=== PATIENT | male | born 1940 | race Caucasian/White ===

== ENCOUNTER 2019-08-26 15:55 | Emergency (ER) | payer MEDICARE, OTHER, SELFPAY ==
[2019-08-26 15:57] VITALS: BP 150/86; PULSE 62; RESP 17; TEMP 37; O2SAT 96; BMI 28.5
--- NOTE | 2019-08-26 16:27 | RAD_ITS ---
STUDY: X-RAY CHEST REASON FOR EXAM: Male, 79 years old. Left-sided pain TECHNIQUE: Frontal view of the chest COMPARISON: 06/12/2013 FINDINGS: The lungs are clear. There are no pleural effusions. There is no pneumothorax. The heart is normal in size. The visualized osseous structures are within normal limits. RAD/Chest 1 View (Portable) IMPRESSION: No acute thoracic pathology. Electronically Signed: Juvenal Mendez, at 17:22 EDT Tel , Service support ,
--- NOTE | 2019-08-26 16:27 | EKG12_ITS ---
Test Reason : Blood Pressure : / mmHG Vent. Rate : 058 BPM Atrial Rate : 058 BPM P-R Int : 186 ms QRS Dur : 102 ms QT Int : 440 ms P-R-T Axes : 039 -03 098 degrees QTc Int : 431 ms Sinus bradycardia with Premature atrial complexes Nonspecific T wave abnormality Abnormal ECG Confirmed by DAWNA STANTON, RIKKI ([id number]), make up editor ELIZA JERONIMO ([id number]) on 08/29/2019 3:23:11 PM Referred By: CRYSTAL Confirmed By:RIKKI TONEY MD
[2019-08-26 16:56] VITALS: O2SAT 96
[2019-08-26] MEDS: Aspirin 81 MG TAB.CHEW 324 MG PO (16:56)
[2019-08-26 17:30] LABS: Absolute Lymphocyte Count 2.23 X10^3/uL (0.83-4.51); Absolute Neutrophil Count 5.3 X10^3/uL (2.0-7.7); Basophil# 0.05 X10^3/uL; Basophil% 0.6 % (0-1); Eosinophils% 1.2 % (0-5); Hematocrit 43.8 % (40-54); Hemoglobin 14.9 g/dL (13.0-16.5); Lymphocyte # 2.23 X10^3/ul (4.0); Lymphocyte % 26.6 % (19-41); Mean Corpuscular Hgb 33.6 pg (27.0-32.0); Mean Corpuscular Volume 98.9 fL (80-94); Mean Platelet Vol. 9.6 fl (6.2-12.0); Monocyte# 0.71 X10^3/uL; Monocyte% 8.5 % (0-10); NRBC Flagged by Analyzer 0 % (0-5); Neutrophil # 5.26 X10^3/uL (2.7-7.7); Neutrophil % 62.9 % (47-70); Platelet Count 148 K/mm3 (150-450); RBC Distribution Width CV 11.6 % (11.6-14.6); Red Blood Count 4.43 M/mm3 (4.6-6.2); White Blood Count 8.4 K/mm3 (4.4-11.0)
[2019-08-26 17:48] LABS: Anion Gap 6 (5-15); BUN 20 mg/dL (7-18); BUN/Creat Ratio 17.7 RATIO (10-20); Chloride 104 mmol/L (98-107); Creatinine, Serum 1.13 mg/dL (0.70-1.30); EST Glomerular Filtration Rate 67 mL/min (>60); Est Glom Filt Rate - Afr Amer 81 mL/min (>60); Estimated Creatinine Clearance 59.13 ml/min; Glucose 108 mg/dL (74-106); Potassium 4.2 mmol/L (3.5-5.1); Sodium Level 141 mmol/L (136-145)
--- NOTE | 2019-08-26 17:52 | ED.DCSUM_ITS ---
- ER Visit Summary Date of Service: 08/26/19 Chief Complaint: Bilateral axillary pain History of Present Illness: The patient is a [address] Ortega. He reports that while he has been home for the COVID-19 he has been spending more time on the computer. States is been falling asleep at the computer sometimes for hours and wakes up finding that his head is slumped forward and that his arms are still on the armrest of the chairs. Reports that he is had pain in both legs left for approximately 2 weeks. Is a dull pain is 5-10 at worst and pain 1 out of 10 currently. States that it is unchanged by movement or exertion. Is taken Motrin with relief. He denies any paresthesias or weakness. He denies any other chest pain. He is right-hand dominant. He is never had anything like this before. Physical Examination: Vitals: Stable. Afebrile. General: Well-nourished and well-developed. Head: Normocephalic atraumatic. Neck: Supple, no lymphadenopathy. No JVD. Nontender. Cardiovascular: Regular rate and rhythm. No murmurs. Respiratory: No respiratory distress. Clear to auscultation bilaterally. Mild tenderness palpation to the lateral pectoralis major muscle bilaterally and in the axilla bilaterally. There are no lymph nodes. No abscess. He is neuro vas intact distally. Abdominal: Soft, nontender, nondistended, normal bowel sounds. No guarding, rebound, or peritoneal signs. Back: Nontender. Extremities: Nontender, no edema. Full range of motion without any pain. No pain over his shoulders. Skin: Normal color, no rash. Neurologic: Alert and oriented ?3. Cranial nerves II through XII are intact. Normal strength and sensation. Psych: Normal affect. Test Results: EKG is sinus bradycardia at 58 with T wave inversions in leads I and aVL. There is no old EKG for comparison troponin is negative. Chem-7 shows a BUN of 20 and glucose 108. CBC shows platelets 148. Clinical Impression(s) from Imaging Studies Chest X-Ray 08/26/19 16:27 IMPRESSION: No acute thoracic pathology. Electronically Signed: Juvenal Mendez, at 17:22 EDT Tel , Service support , Emergency Department Course and Treatment: Patient refused pain medications. He is resting comfortably. Treatment Plan: I suspect that the patient's pain is really musculoskeletal in etiology. I do not think that he needs to be admitted to the hospital. He will be discharged instructions to follow-up his primary care physician in 3 to 5 days for another exam. Return to the emergency department for any worsening symptoms. Disposition: To home in improved and stable condition. Impression: 1. Atypical chest pain. 2. History of hypertension. 3. History of type 2 diabetes mellitus. 4. History of hypercholesterolemia. This note was generated with [employer] dictation software. It may contain incorrect words, spelling, and punctuation that were not noted in review of the chart prior to signing ED Disposition - Plan for ED Patient: Disposition: Home or Assisted Living Instructions: ED Shoulder Pain Uncertain Cause Referrals: Arline Mckeon MD [Primary Care Provider] - 1 Week if not improving
[2019-08-26 18:30] VITALS: BP 121/69; PULSE 52; RESP 16; O2SAT 95
--- NOTE | 2019-08-26 18:30 | ED.RN ---
REVIEWED D/C INSTRUCTIONS, FOLLOW UP CARE, AND S/S THAT WOULD WARRANT A RETURN TO THE ED WITH PT. PT VERBALIZED AN UNDERSTANDING AND DENIES FURTHER QUESTIONS FOR THIS RN. PT SKIN P/W/D, RESP EVEN AND UNLABORED, PT A&O X 3, NO DISTRESS NOTED. PT AMBULATED OUT OF ED, GAIT STEADY.
== END 2019-08-26 18:31 | disposition home or self-care (01) ==
LOC: ED 17:06
PROVIDERS: Emergency Provider Emergency Medicine; PCP Internal Medicine
DX: R07.89 Other chest pain (principal); I10 Essential (primary) hypertension; E11.9 Type 2 diabetes mellitus without complications; E78.00 Pure hypercholesterolemia, unspecified; R00.1 Bradycardia, unspecified; R19.7 Diarrhea, unspecified
CPT/HCPCS: 71045; 80048; 84484; 85025; 93005; 99284

== ENCOUNTER 2020-10-06 16:23 | Observation (INO) | payer MEDICARE, OTHER, SELFPAY ==
[2020-10-06] VITALS (8 sets, daily range): BP systolic 144–169; BP diastolic 70–94; PULSE 51–70; RESP 15–18; TEMP 35.7–36.8; O2SAT 96–100; BMI 27.8; BMI 26.6
--- NOTE | 2020-10-06 17:01 | EKG12_ITS ---
Test Reason : CHEST PAIN Blood Pressure : / mmHG Vent. Rate : 064 BPM Atrial Rate : 064 BPM P-R Int : 176 ms QRS Dur : 104 ms QT Int : 398 ms P-R-T Axes : 034 007 088 degrees QTc Int : 410 ms Normal sinus rhythm Normal ECG Confirmed by KENYA STODDARD MD ([id number]), editor producer NEIL RAMSEY ([id number]) on 10/08/2020 9:08:45 AM Referred By: ALFREDO Confirmed By:KENYA STODDARD MD
--- NOTE | 2020-10-06 17:01 | RAD_ITS ---
STUDY: X-RAY CHEST REASON FOR EXAM: Male, 80 years old. Chest pain TECHNIQUE: Frontal view COMPARISON: 08/26/2019. FINDINGS: The lungs are clear and expanded. There is no demonstrated pleural abnormality. Normal size heart. Normal mediastinum and tori. Normal visualized pulmonary arteries. Normal visualized aortic arch and descending thoracic aorta. Mild degenerative changes of the thoracic spine. Normal visualized ribs, clavicles, and shoulders. There is no demonstrated abnormality of the visualized soft tissue structures of the upper abdomen. RAD/Chest 1 View (Portable) IMPRESSION: Normal x-ray examination of the chest. Electronically Signed: Lauro Beasley DO at 17:41 EDT Tel [phone], Service support ,
[2020-10-06] MEDS: Aspirin 81 MG TAB.CHEW 324 MG PO (17:10)
--- NOTE | 2020-10-06 17:10 | EDS_ITS ---
HPI History of Present Illness Chief Complaint: Chest Pain Informant: patient Onset/Context/Timing Onset: Today Current Severity: Mild Maximum Severity: Severe Narrative Narrative: Patient presents secondary to bilateral arm and chest pain. Patient states that he was doing some light activity moving dog biscuits around 330 this afternoon. He developed severe aching in his bilateral arms that progressed to the left posterior neck and to the pectoral muscles on his chest. He did take some Motrin. He states he had a hard time sitting still and felt he does need to pace. He states pain was a 10 out of 10 at onset but is currently [address] [facility] Medical History (Updated 10/06/20 @ 18:[address] Marilee Gaines MD) Benign hypertension Diabetes mellitus type 2, uncontrolled, without complications HLD (hyperlipidemia) Home Medications Atorvastatin Calcium 80 mg PO DAILY 06/12/13 [History Last Taken Unknown] cholecalciferol (vitamin D3) [Vitamin D3] 1,000 unit PO DAILY 06/12/13 [History Last Taken Unknown] coenzyme Q10 [Co Q-10] 100 mg PO DAILY 06/12/13 [History Last Taken Unknown] latanoprost 1 drp EACH EYE QHS 06/12/13 [History Last Taken Unknown] metformin 500 mg PO BIDCM 06/12/13 [History Last Taken Unknown] multivitamin with folic acid [Thera] 1 tab PO DAILY 06/12/13 [History Last Taken Unknown] sulfamethoxazole-trimethoprim 1 tab PO BID #20 tablet 12/11/15 [Rx Last Taken Unknown] finasteride 5 mg PO DAILY 10/06/20 [History Last Taken Unknown] glimepiride 0.5 mg PO DAILY 10/06/20 [History Last Taken Unknown] Allergy/AdvReac Type Severity Reaction Status Date / Time Horse/Equine Containing Allergy Other Verified 10/06/20 16:37 Products iodine Allergy Rash Verified 10/06/20 16:37 pneumococcal vaccine Allergy Rash Verified 10/06/20 16:37 [Pneumococcal Vaccine] shellfish derived Allergy Rash Verified 10/06/20 16:37 esomeprazole magnesium AdvReac Pain in Verified 10/06/20 16:37 [From Nexium] joints fexofenadine HCl AdvReac Pain in Verified 10/06/20 16:37 [From Karen] joints glipizide AdvReac Pain in Verified 10/06/20 16:37 joints gluten AdvReac Nausea/Vom/ Verified 10/06/20 16:37 Diarrhea lansoprazole [From Prevacid] AdvReac Pain in Verified 10/06/20 16:37 joints simvastatin [From Zocor] AdvReac Pain in Verified 10/06/20 16:37 joints POLLEN AdvReac Other Uncoded 10/06/20 16:37 Social History Smoking Status: Never smoker ROS ROS ED Constitutional Constitutional ED: Denies chills or fever(s) Eyes Eyes: Denies change in vision ENT ENT ED: Denies sore throat Cardiovascular Cardiovascular: Reports chest pain Respiratory/Chest Respiratory/Chest: Denies cough or dyspnea Gastrointestinal Gastrointestinal: Denies abdominal pain, diarrhea, nausea or vomiting Genitourinary Genitourinary ED: Denies dysuria Musculoskeletal Musculoskeletal: Reports myalgias and neck pain; Denies back pain Integumentary Denies rash Neurologic Neurologic: Denies headache(s) or weakness Psychiatric Psychiatric: Denies anxiety or depression Endocrine Endocrinology: Denies polydipsia or polyuria Allergic/Immunologic Allergic/Immunologic ED: Denies urticaria EXAM Physical Exam Const Vital Signs: 10/06/20 16:23 10/06/20 16:42 10/06/20 17:02 Temperature 96.2 F L Temperature Source Temporal Pulse Rate 70 Respiratory Rate 16 Respiratory Effort Normal Non-Labored Blood Pressure 169/88 H Blood Pressure Mean 115 Pulse Ox 96 100 Oxygen Delivery Method Room Air Room Air 10/06/20 18:23 Temperature Temperature Source Pulse Rate 61 Respiratory Rate 15 Respiratory Effort Blood Pressure 144/70 H Blood Pressure Mean 94 Pulse Ox 99 Oxygen Delivery Method Room Air Positive well nourished and well developed General Appearance ED: well developed HEENT Reports normocephalic and head/scalp atraumatic Eyes PERRL and EOMs intact bilaterally Neck supple Chest Wall inspection of chest normal and palpation of chest normal Resp normal respiratory effort and clear to auscultation bilaterally Cardio regular rate and regular rhythm GI normal to inspection, nondistended, normoactive bowel sounds Palpation: soft Extremity normal to inspection Neuro oriented x3 and no sensory deficits noted Sensorium / Orientation: alert Motor Exam: strength 5/5 throughout Psych mental status grossly normal Skin no rashes or lesions noted MDM MDM MDM Narrative Medical decision making narrative: Patient was given aspirin on arrival. EKG, labs, chest x-ray are obtained. Lab Data Attestation: I reviewed the patient's lab results. Labs: Laboratory Results - last 24 hr 10/06/20 10/06/20 10/06/20 15:45 15:45 17:12 WBC 8.6 RBC 4.69 Hgb 15.6 Hct 45.3 MCV 96.6 H MCH 33.3 H MCHC 34.4 RDW Std Deviation 41.0 RDW Coeff of Deepali 11.6 Plt Count 170 MPV 9.4 Immature Gran % (Auto) 0.200 Neut % (Auto) 55.3 Lymph % (Auto) 34.5 [place] % (Auto) 8.4 Eos % (Auto) 1.0 Baso % (Auto) 0.6 Absolute Neuts (auto) 4.8 Absolute Lymphs (auto) 2.97 Nucleated RBC % 0 D-Dimer Quant (PE/DVT) 0.56 H* Sodium 137 Potassium 4.4 Chloride 102 Carbon Dioxide 27.0 Anion Gap 8 BUN 20 H Creatinine 1.22 Estim Creat Clear Calc 53.89 Est GFR (MDRD) Af Amer 74 Est GFR (MDRD) Non-Af 61 BUN/Creatinine Ratio 16.4 Glucose 149 H Calcium 9.4 Troponin I High Sens 13.5 10/06/20 18:09 WBC RBC Hgb Hct MCV MCH MCHC RDW Std Deviation RDW Coeff of Deepali Plt Count MPV Immature Gran % (Auto) Neut % (Auto) Lymph % (Auto) [place] % (Auto) Eos % (Auto) Baso % (Auto) Absolute Neuts (auto) Absolute Lymphs (auto) Nucleated RBC % D-Dimer Quant (PE/DVT) Sodium Potassium Chloride Carbon Dioxide Anion Gap BUN Creatinine Estim Creat Clear Calc Est GFR (MDRD) Af Amer Est GFR (MDRD) Non-Af BUN/Creatinine Ratio Glucose Calcium Troponin I High Sens 29.3 Radiography Chest X-Ray - ED: 1 View, Read by ED Physician and Chronic Changes Diagnostic Testing: Radiology Impression Chest X-Ray 10/06/20 17:01 IMPRESSION: Normal x-ray examination of the chest. Electronically Signed: Lauro Beasley DO at 17:41 EDT Tel [phone], Service support , EKG Initial EKG: Attestation: I personally reviewed and interpreted this EKG as follows: Interpretation: Sinus Rhythm (Sinus at 64 with no acute ischemia. Unchang ed compared to prior study of 08/26/2019) Follow-up EKG: Attestation: I personally reviewed and interpreted this EKG as follows: Interpretation: Sinus Bradycardia (Sinus bradycardia [address] change.) Treatment and Re-Evaluation Comments:: Patient's chest x-ray is unremarkable with chronic changes only. Radiologist interpretation is reviewed. EKG reveals no sign of acute ischemia. Initial troponin returns at 13.5. Delta troponin has increased to 29. D-dimer is normal when age-adjusted. No EKG changes were noted on repeat. At this time I have recommended observation for cycling of enzymes. I will speak with the hospitalist. Discharge Plan Dx/Rx/DC Orders Clinical Impression: Chest pain Disposition Disposition: Acute Care Hospital [facility]
[2020-10-06 17:32] LABS: Absolute Lymphocyte Count 2.97 X10^3/uL (0.83-4.51); Absolute Neutrophil Count 4.8 X10^3/uL (2.0-7.7); Basophil# 0.05 X10^3/uL; Basophil% 0.6 % (0-1); Eosinophil# 0.09 X10^3/uL; Hematocrit 45.3 % (40-54); Hemoglobin 15.6 g/dL (13.0-16.5); Lymphocyte # 2.97 X10^3/ul (0.83-4.51); Lymphocyte % 34.5 % (19-41); Mean Corp Hgb Conc 34.4 g/dL (32-36); Mean Corpuscular Hgb 33.3 pg (27.0-32.0); Mean Corpuscular Volume 96.6 fL (80-94); Mean Platelet Vol. 9.4 fl (6.2-12.0); Monocyte# 0.72 X10^3/uL; Monocyte% 8.4 % (0-10); NRBC Flagged by Analyzer 0 % (0-5); Neutrophil # 4.76 X10^3/uL (2.7-7.7); Neutrophil % 55.3 % (47-70); Platelet Count 170 K/mm3 (150-450); RBC Distribution Width CV 11.6 % (11.6-14.6); Red Blood Count 4.69 M/mm3 (4.6-6.2); White Blood Count 8.6 K/mm3 (4.4-11.0)
[2020-10-06 17:34] LABS: Anion Gap 8 (5-15); BUN 20 mg/dL (7-18); BUN/Creat Ratio 16.4 RATIO (10-20); Calcium,Total 9.4 mg/dL (8.5-10.1); Chloride 102 mmol/L (98-107); Creatinine, Serum 1.22 mg/dL (0.70-1.30); EST Glomerular Filtration Rate 61 mL/min (>60); Est Glom Filt Rate - Afr Amer 74 mL/min (>60); Estimated Creatinine Clearance 53.89 ml/min; Glucose 149 mg/dL (74-106); Potassium 4.4 mmol/L (3.5-5.1); Sodium Level 137 mmol/L (136-145); Troponin-I HS 13.5 pg/mL (3.0-78.5)
[2020-10-06 17:38] LABS: D-Dimer Quantitative (DVT/PE) 0.56 FEU/ug/m (0.27-0.49)
--- NOTE | 2020-10-06 18:03 | EKG12_ITS ---
Test Reason : REPEAT Blood Pressure : / mmHG Vent. Rate : 052 BPM Atrial Rate : 052 BPM P-R Int : 178 ms QRS Dur : 096 ms QT Int : 458 ms P-R-T Axes : 053 022 083 degrees QTc Int : 425 ms Sinus bradycardia Otherwise normal ECG Confirmed by ARLYN STANTON, KENYA ([id number]), offline editor NEIL RAMSEY ([id number]) on 10/08/2020 9:08:57 AM Referred By: ALFREDO Confirmed By:KENYA STODDARD MD
[2020-10-06 18:34] LABS: Troponin-I HS 29.3 pg/mL (3.0-78.5)
--- NOTE | 2020-10-06 19:04 | PCM.HP.STD ---
Documented by User: MONI MeehanC 10/06/20 19:15 HPI - General HPI Narrative LESLIE CROWLEY, is a 80 M who presents with complaints of chest pain. Patient states that he was at home moving a container of dog biscuits when he got crushing chest pain along with bilateral arm pain. Patient states that he took ibuprofen at home initially because he thought that he lifted wrong but the pain continued and he began to worry that it might be his heart. Patient states that initially pain was 10 out of 10 but is currently 2 out of 10. Patient denies cough, shortness of breath, nausea, vomiting. [facility] Medical History (Updated 10/06/20 @ 19:10 by GENO Meehan) Benign hypertension BPH (benign prostatic hyperplasia) Diabetes mellitus type 2, uncontrolled, without complications Glaucoma HLD (hyperlipidemia) Home Medications Atorvastatin Calcium 80 mg PO DAILY 06/12/13 [History Last Taken Unknown] cholecalciferol (vitamin D3) [Vitamin D3] 1,000 unit PO DAILY 06/12/13 [History Last Taken Unknown] coenzyme Q10 [Co Q-10] 100 mg PO DAILY 06/12/13 [History Last Taken Unknown] latanoprost 1 drp EACH EYE QHS 06/12/13 [History Last Taken Unknown] metformin 500 mg PO BIDCM 06/12/13 [History Last Taken Unknown] multivitamin with folic acid [Thera] 1 tab PO DAILY 06/12/13 [History Last Taken Unknown] sulfamethoxazole-trimethoprim 1 tab PO BID #20 tablet 12/11/15 [Rx Last Taken Unknown] finasteride 5 mg PO DAILY 10/06/20 [History Last Taken Unknown] glimepiride 0.5 mg PO DAILY 10/06/20 [History Last Taken Unknown] Allergy/AdvReac Type Severity Reaction Status Date / Time Horse/Equine Containing Allergy Other Verified 10/06/20 16:37 Products iodine Allergy Rash Verified 10/06/20 16:37 pneumococcal vaccine Allergy Rash Verified 10/06/20 16:37 [Pneumococcal Vaccine] shellfish derived Allergy Rash Verified 10/06/20 16:37 esomeprazole magnesium AdvReac Pain in Verified 10/06/20 16:37 [From Nexium] joints fexofenadine HCl AdvReac Pain in Verified 10/06/20 16:37 [From Karen] joints glipizide AdvReac Pain in Verified 10/06/20 16:37 joints gluten AdvReac Nausea/Vom/ Verified 10/06/20 16:37 Diarrhea lansoprazole [From Prevacid] AdvReac Pain in Verified 10/06/20 16:37 joints simvastatin [From Zocor] AdvReac Pain in Verified 10/06/20 16:37 joints POLLEN AdvReac Other Uncoded 10/06/20 16:37 Social History (Updated 10/06/20 @ 19:08 by Trisha Lema NP-C) Smoking Status: Never smoker alcohol intake: current alcohol intake frequency: holidays/special occasions only substance use type: does not use do you feel safe at home: Yes ROS Constitutional Constitutional: Denies anorexia, chills, fatigue, malaise or weakness Cardiovascular Cardiovascular: Reports chest pain and radiating jaw, neck or arm pain; Denies edema or palpitations Respiratory/Chest Respiratory/Chest: Denies cough, shortness of breath at rest or shortness of breath with exertion Gastrointestinal Gastrointestinal: Denies abdominal pain, constipation, diarrhea, nausea or vomiting Genitourinary Genitourinary: Denies dysuria Musculoskeletal Musculoskeletal: Reports back pain; Denies extremity pain, joint pain, joint stiffness or joint swelling Integumentary Integumentary: Denies dry skin Neurologic Neurologic: Denies abnormal gait, abnormal speech, confusion or dizziness Psychiatric Psychiatric: Denies anxiety or depression Endocrine Endocrinology: Denies change in body appearance Hematologic/Lymphatic Hematologic/Lymphatic: Denies easy bleeding or easy bruising Vital Signs Vital Signs Vital Signs: 10/06/20 16:23 10/06/20 16:42 10/06/20 17:02 Temperature 96.2 F L Temperature Source Temporal Pulse Rate 70 Respiratory Rate 16 Respiratory Effort Normal Non-Labored Blood Pressure 169/88 H Blood Pressure Mean 115 Pulse Ox 96 100 Oxygen Delivery Method Room Air Room Air 10/06/20 18:23 10/06/20 18:58 Temperature 98.3 F Temperature Source Temporal Pulse Rate 61 61 Respiratory Rate 15 18 Respiratory Effort Blood Pressure 144/70 H 150/94 H Blood Pressure Mean 94 112 Pulse Ox 99 99 Oxygen Delivery Method Room Air Room Air Weight Weight: 205 lb Body Mass Index (BMI) 27.8 Physical Exam Const alert and oriented x3 General Appearance: cooperative HEENT normocephalic and head/scalp atraumatic Eyes conjunctivae normal and no scleral icterus Neck supple and no JVD General: trachea midline Resp normal respiratory effort, normal air movement and clear to auscultation bilaterally Cardio regular rhythm, S1 normal heart sound and S2 normal heart sound Rate: bradycardia GI normal to inspection, nondistended, normoactive bowel sounds, soft to palpation and non-tender Extremity normal capillary refill and no clubbing, cyanosis or edema General Extremity: no tenderness to palpation of joints or extremities Skin General Skin Exam: no breakdown and turgor normal Lesions: no lesions Rashes: no rashes Neuro no focal motor deficits and no sensory deficits noted Speech: speech normal Psych thought process normal, cooperative and affect normal Appearance: appropriate Results Lab / Micro Data Result Diagrams: 10/06/20 15:45 10/06/20 15:45 Labs: Laboratory Results - last 24 hr 10/06/20 10/06/20 10/06/20 15:45 15:45 17:12 WBC 8.6 RBC 4.69 Hgb 15.6 Hct 45.3 MCV 96.6 H MCH 33.3 H MCHC 34.4 RDW Std Deviation 41.0 RDW Coeff of Deepali 11.6 Plt Count 170 MPV 9.4 Immature Gran % (Auto) 0.200 Neut % (Auto) 55.3 Lymph % (Auto) 34.5 [place] % (Auto) 8.4 Eos % (Auto) 1.0 Baso % (Auto) 0.6 Absolute Neuts (auto) 4.8 Absolute Lymphs (auto) 2.97 Nucleated RBC % 0 D-Dimer Quant (PE/DVT) 0.56 H* Sodium 137 Potassium 4.4 Chloride 102 Carbon Dioxide 27.0 Anion Gap 8 BUN 20 H Creatinine 1.22 Estim Creat Clear Calc 53.89 Est GFR (MDRD) Af Amer 74 Est GFR (MDRD) Non-Af 61 BUN/Creatinine Ratio 16.4 Glucose 149 H Calcium 9.4 Troponin I High Sens 13.5 10/06/20 18:09 WBC RBC Hgb Hct MCV MCH MCHC RDW Std Deviation RDW Coeff of Deepali Plt Count MPV Immature Gran % (Auto) Neut % (Auto) Lymph % (Auto) [place] % (Auto) Eos % (Auto) Baso % (Auto) Absolute Neuts (auto) Absolute Lymphs (auto) Nucleated RBC % D-Dimer Quant (PE/DVT) Sodium Potassium Chloride Carbon Dioxide Anion Gap BUN Creatinine Estim Creat Clear Calc Est GFR (MDRD) Af Amer Est GFR (MDRD) Non-Af BUN/Creatinine Ratio Glucose Calcium Troponin I High Sens 29.3 Radiology Impression Chest X-Ray 10/06/20 17:01 IMPRESSION: Normal x-ray examination of the chest. Electronically Signed: Laurougo Beasley DO at 17:41 EDT Tel [phone], Service support , Assessment & Plan Assessment/Plan (1) Chest pain: QUALIFIERS: Chest pain type: unspecified Qualified Code(s): R07.9 - Chest pain, unspecified PLAN: 1. Chest pain -Admit to PCU for observation and continuous cardiac monitoring -Stress echo ordered for a.m. -Trend cardiac enzymes -N.p.o. at midnight for pending stress echo -EKG in a.m. -CBC, CMP, lipid panel in a.m. -O2 per protocol -Vital signs per protocol, trend BP and heart rate -Will initiate aspirin -Graduated pain management ordered including Tylenol, oxycodone, and morphine. Sublingual nitro also ordered. 2. Hypertension -Patient reports a history however not currently taking any medications -We will initiate lisinopril 5 mg p.o. along with as needed hydralazine for better blood pressure control 3. Diabetes mellitus type 2 -Hold glimepiride and Metformin -AC at bedtime blood sugars with sliding scale insulin ordered 4. BPH -Continue finasteride, track intake and output DVT prophylaxis-SCDs and Lovenox This patient was seen by Trisha Lema NP-C under the supervision of Dr. Brower. Documented by User: Dr. Nicole Brower MD 10/06/20 19:18 HPI - General General Date of Admission: 10/06/20 Date of Service: 10/06/20 Chief Complaint: Chest pain PFSH Medical History (Updated 10/06/20 @ 19:10 by MONI MeehanC) Benign hypertension BPH (benign prostatic hyperplasia) Diabetes mellitus type 2, uncontrolled, without complications Glaucoma HLD (hyperlipidemia) Home Medications Atorvastatin Calcium 80 mg PO DAILY 06/12/13 [History Last Taken Unknown] cholecalciferol (vitamin D3) [Vitamin D3] 1,000 unit PO DAILY 06/12/13 [History Last Taken Unknown] coenzyme Q10 [Co Q-10] 100 mg PO DAILY 06/12/13 [History Last Taken Unknown] latanoprost 1 drp EACH EYE QHS 06/12/13 [History Last Taken Unknown] metformin 500 mg PO BIDCM 06/12/13 [History Last Taken Unknown] multivitamin with folic acid [Thera] 1 tab PO DAILY 06/12/13 [History Last Taken Unknown] sulfamethoxazole-trimethoprim 1 tab PO BID #20 tablet 12/11/15 [Rx Last Taken Unknown] finasteride 5 mg PO DAILY 10/06/20 [History Last Taken Unknown] glimepiride 0.5 mg PO DAILY 10/06/20 [History Last Taken Unknown] Allergy/AdvReac Type Severity Reaction Status Date / Time Horse/Equine Containing Allergy Other Verified 10/06/20 16:37 Products iodine Allergy Rash Verified 10/06/20 16:37 pneumococcal vaccine Allergy Rash Verified 10/06/20 16:37 [Pneumococcal Vaccine] shellfish derived Allergy Rash Verified 10/06/20 16:37 esomeprazole magnesium AdvReac Pain in Verified 10/06/20 16:37 [From Nexium] joints fexofenadine HCl AdvReac Pain in Verified 10/06/20 16:37 [From Karen] joints glipizide AdvReac Pain in Verified 10/06/20 16:37 joints gluten AdvReac Nausea/Vom/ Verified 10/06/20 16:37 Diarrhea lansoprazole [From Prevacid] AdvReac Pain in Verified 10/06/20 16:37 joints simvastatin [From Zocor] AdvReac Pain in Verified 10/06/20 16:37 joints POLLEN AdvReac Other Uncoded 10/06/20 16:37 Social History (Updated 10/06/20 @ 19:08 by GENO Meehan) Smoking Status: Never smoker alcohol intake: current alcohol intake frequency: holidays/special occasions only substance use type: does not use do you feel safe at home: Yes Results Lab / Micro Data Result Diagrams: 10/06/20 15:45 10/06/20 15:45
[2020-10-06 19:27] LABS: Magnesium 1.6 mg/dL (1.6-2.6)
[2020-10-06 21:05] LABS: Bedside Glucose 153 mg/dL (70-110)
[2020-10-06] MEDS: Insulin Lispro 100 UNIT/ML INSULN.PEN SC (21:07)
[2020-10-06] MEDS: Famotidine 20 MG Tablet PO (21:08)
[2020-10-06] MEDS: Latanoprost 0.005% 1 Bottle 1 DRP EACH EYE (21:08)
[2020-10-06] MEDS: Lisinopril 20 MG Tablet PO (21:09)
[2020-10-07] VITALS (8 sets, daily range): BP systolic 114–140; BP diastolic 64–74; PULSE 52–67; RESP 14–18; TEMP 36.6–36.9; O2SAT 95–96
--- NOTE | 2020-10-07 05:55 | EKG12_ITS ---
Test Reason : AM EKG Blood Pressure : / mmHG Vent. Rate : 056 BPM Atrial Rate : 056 BPM P-R Int : 182 ms QRS Dur : 104 ms QT Int : 442 ms P-R-T Axes : 059 027 093 degrees QTc Int : 426 ms Sinus bradycardia Nonspecific T wave abnormality Abnormal ECG When compared with ECG of 06-OCT-2020 18:29, MANUAL COMPARISON REQUIRED, DATA IS UNCONFIRMED Confirmed by ARLYN STANTON, KENYA ([id number]), pictures editor NEIL RAMSEY ([id number]) on 10/08/2020 9:14:17 AM Referred By: GLO Confirmed By:KENYA STODDARD MD
[2020-10-07] MEDS: Aspirin E.C. 81 MG Tablet PO (06:36)
[2020-10-07 06:40] LABS: Bedside Glucose 154 mg/dL (70-110)
[2020-10-07 06:47] LABS: Absolute Lymphocyte Count 2.89 X10^3/uL (0.83-4.51); Absolute Neutrophil Count 4.8 X10^3/uL (2.0-7.7); Basophil# 0.05 X10^3/uL; Basophil% 0.6 % (0-1); Eosinophil# 0.13 X10^3/uL; Eosinophils% 1.5 % (0-5); Hematocrit 45.6 % (40-54); Hemoglobin 15.6 g/dL (13.0-16.5); Lymphocyte # 2.89 X10^3/ul (0.83-4.51); Lymphocyte % 33.9 % (19-41); Mean Corp Hgb Conc 34.2 g/dL (32-36); Mean Corpuscular Hgb 33.1 pg (27.0-32.0); Mean Corpuscular Volume 96.8 fL (80-94); Mean Platelet Vol. 9.4 fl (6.2-12.0); Monocyte# 0.59 X10^3/uL; Monocyte% 6.9 % (0-10); NRBC Flagged by Analyzer 0 % (0-5); Neutrophil # 4.83 X10^3/uL (2.7-7.7); Neutrophil % 56.6 % (47-70); Platelet Count 161 K/mm3 (150-450); RBC Distribution Width CV 11.5 % (11.6-14.6); Red Blood Count 4.71 M/mm3 (4.6-6.2); White Blood Count 8.5 K/mm3 (4.4-11.0)
[2020-10-07 07:40] LABS: BUN 16 mg/dL (7-18); Creatinine, Serum 1.07 mg/dL (0.70-1.30); Glucose 151 mg/dL (74-106)
[2020-10-07 07:41] LABS: ALB/GLOB Ratio 1.1 RATIO (0.9-2.4); AST(SGOT) 25 U/L (15-37); Alanine Aminotransfer ALT/SGPT 16 U/L (16-61); Albumin, Serum 3.6 g/dL (3.2-5.0); Alkaline Phosphatase 62 U/L (45-117); Anion Gap 6 (5-15); Calcium,Total 8.8 mg/dL (8.5-10.1); Chloride 103 mmol/L (98-107); Cholesterol 138 mg/dL (200); EST Glomerular Filtration Rate 71 mL/min (>60); Est Glom Filt Rate - Afr Amer 86 mL/min (>60); Estimated Creatinine Clearance 61.44 ml/min; Globulin 3.4 g/dL (2.2-4.2); High Density Lipoprotein 48 mg/dL; Potassium 4.3 mmol/L (3.5-5.1); Sodium Level 137 mmol/L (136-145); Triglycerides 133 mg/dL; Very Low Density Lipoprotein 27 mg/dL (5-40)
[2020-10-07 11:55] LABS: Bedside Glucose 149 mg/dL (70-110)
[2020-10-07] MEDS: Famotidine 20 MG Tablet PO (13:43)
[2020-10-07] MEDS: Finasteride 5 MG Tablet PO (13:44)
[2020-10-07] MEDS: Enoxaparin 40 MG/0.4 ML Syringe SC (14:56)
[2020-10-07] MEDS: Insulin Lispro 100 UNIT/ML INSULN.PEN SC (16:25)
[2020-10-07 16:41] LABS: Bedside Glucose 177 mg/dL (70-110)
--- NOTE | 2020-10-07 17:40 | PCM.DC ---
Discharge Instructions Diet Discharge Diet: 1800 Calorie Control Diet Activity Discharge Activity: Return to Normal Activity Weight Bearing Status: Full weight bearing Follow Up Care Test Results: Test results from this visit will be discussed in further detail at your follow-up appointment, if applicable. Discharge Plan Admission Admit Date/Time: 10/06/20 19:06 Primary Reason for Your Visit: chest pain Attending Provider: Randal Jaffe Primary Care Provider: Arline Mckeon Instructions Patient Instructions: ED Chest Pain, Noncardiac Discharge Orders/Prescriptions Prescriptions: Continued Atorvastatin Calcium 80 mg PO DAILY RF: 0 latanoprost 1 DROP bottle 1 drp Each Eye QHS RF: 0 metformin 1,000 MG tablet 500 mg PO BIDCM RF: 0 cholecalciferol (vitamin D3) [Vitamin D3] 1,000 UNIT capsule 1,000 unit PO DAILY RF: 0 multivitamin with folic acid [Thera] 1 TABLET tablet 1 tab PO DAILY RF: 0 finasteride 5 mg tablet 5 mg PO DAILY RF: 0 benazepril 10 mg tablet 10 mg PO QHS RF: 0 Discontinued coenzyme Q10 [Co Q-10] 100 MG capsule 100 mg PO DAILY RF: 0 Referrals / Follow Up: Arline Mckeon MD [Primary Care Provider] - In 1 Week Disposition Disposition (needs filled in before D/C Order can be placed): Home, Self Care
--- NOTE | 2020-10-07 18:07 | STRESSREP_ITS ---
Stress Test Report Pharmacologic myocardial perfusion stress test. 80-year-old male with a history of chest pain. Stress protocol: Resting EKG demonstrates normal sinus rhythm with a rate of 57 bpm normal intervals are noted resting blood pressure is 130/76 mmHg. The maximum heart rate was 96 bpm which was 68% of maximum predicted heart rate the maximum work load was 1 metabolic equivalent. At rest there were no ST or T wave changes noted to suggest ischemia and at peak infusion nonspecific ST changes were noted with did not meet the criteria for ischemia. No clinical angina was noted. Myocardial perfusion protocol. 11.9 mCi of technetium 99m sestamibi was injected at rest. 0.4 mg of regadenoson was infused per usual protocol. At peak infusion 34.4 mCi of technetium 99m sestamibi was injected stress images were obtained stress and rest images were reconstructed and compared in the short axis vertical long and horizontal long axis. Perfusion SPECT analysis: Review of the stress images demonstrate normal uptake of tracer noted in all areas of the myocardium. The resting images similarly demonstrate normal uptake of tracer noted in all areas of the myocardium. No areas of reversibility are noted to suggest ischemia and no previous infarct is noted. Gated SPECT analysis: The gated ejection fraction is 69%. Conclusion: Normal pharmacologic myocardial perfusion stress test. Preserved ejection fraction.
--- NOTE | 2020-10-09 19:33 | DS.PCM_ITS ---
Providers Date of Admission: 10/06/20 Date of Discharge: 10/07/20 Primary Care Physician: Arline Mckeon MD Reason For Visit: CHEST PAIN Diagnosis Discharge Diagnosis (1) Chest pain: Status: Acute Code(s): R07.9 - Chest pain, unspecified Qualifiers: Chest pain type: unspecified Qualified Code(s): R07.9 - Chest pain, unspecified Plan: Discharge diagnosis: #1 noncardiac chest pain due to musculoskeletal etiology #2 essential hypertension #3 hyperlipidemia #4 type 2 diabetes Medications at Discharge Home Medications Atorvastatin Calcium 80 mg PO DAILY 06/12/13 cholecalciferol (vitamin D3) [Vitamin D3] 1,000 unit PO DAILY 06/12/13 latanoprost 1 drp EACH EYE QHS 06/12/13 metformin 500 mg PO BIDCM 06/12/13 multivitamin with folic acid [Thera] 1 tab PO DAILY 06/12/13 benazepril 10 mg PO QHS 10/06/20 finasteride 5 mg PO DAILY 10/06/20 Hospital Course Operations None Procedures Stress test Summary of Care Provided Minutes Spent on Discharge: 30 Hospital Course: This 80-year-old white male was seen in the emergency room at [facility] with a chief complaint of precordial chest discomfort, work-up in the emergency room included an EKG, cardiac enzymes, and a chest x-ray all of which were unremarkable. Patient was placed in observation status on PCU, cardiac enzymes were cycled and these remained normal, patient underwent a nuclear stress test on 10/07/2020 which was negative for reversible ischemia. On 10/07/2020, patient was seen and examined: On examination he appeared in good health and spirits. Vital signs as documented. Skin warm and dry and without overt rashes. Neck without JVD, neck was supple, trachea midline, thyroid was normal. Lungs clear bilaterally, normal air movement was noted. Heart exam notable for regular rhythm, normal sounds and absence of murmurs, rubs or gallops. Abdomen unremarkable and without evidence of organomegaly, masses, or abdominal aortic enlargement. Bowel sounds are present, abdomen is not distended. Extremities nonedematous, no cyanosis was noted, no clubbing was noted. Neuro: Cranial nerves II through XII are grossly intact, no focal motor deficits were noted, sensation to light touch and pinprick intact, motor exam 5/5 throughout. Psych: Patient is alert and oriented x3, he does not appear anxious or depressed, he does not appear agitated. Patient appears stable for discharge home on 10/07/2020. Weight / BMI Weight Weight: 88.6 kg Body Mass Index (BMI) 26.6 ABG / Lab / Microbiology Data Result Diagrams: 10/07/20 06:22 10/07/20 06:22 D/C Instructions Discharge Diet: 1800 Calorie Control Diet Weight Bearing Status: Full weight bearing Meaningful Use Info Meaningful Use Diagnoses (Choose all that apply): None applicable Discharge Plan Admission Admit Date/Time: 10/06/20 19:06 Primary Reason for Your Visit: chest pain Attending Provider: Randal Jaffe Primary Care Provider: Arline Mckeon Instructions Patient Instructions: ED Chest Pain, Noncardiac Additional Instructions / Restrictions: Patient Problems: Altered Health Status related to Hospitalization Patient Goals: *Optimal Level of Health *Keep Appointments *Medication Compliance *Remain Safe Discharge Orders/Prescriptions Prescriptions: Continued Atorvastatin Calcium 80 mg PO DAILY RF: 0 latanoprost 1 DROP bottle 1 drp Each Eye QHS RF: 0 metformin 1,000 MG tablet 500 mg PO BIDCM RF: 0 cholecalciferol (vitamin D3) [Vitamin D3] 1,000 UNIT capsule 1,000 unit PO DAILY RF: 0 multivitamin with folic acid [Thera] 1 TABLET tablet 1 tab PO DAILY RF: 0 finasteride 5 mg tablet 5 mg PO DAILY RF: 0 benazepril 10 mg tablet 10 mg PO QHS RF: 0 Discontinued coenzyme Q10 [Co Q-10] 100 MG capsule 100 mg PO DAILY RF: 0 Referrals / Follow Up: Arline Mckeon MD [Primary Care Provider] - In 1 Week Disposition Disposition (needs filled in before D/C Order can be placed): Home, Self Care Charges/Coding Visit Charges OBSV E&M: 08495 Observation care discharge
== END 2020-10-07 18:24 | disposition home or self-care (01) ==
LOC: ED 18:49 → PCU 19:07
PROVIDERS: Admitting Provider Family Medicine; Emergency Provider Emergency Medicine; PCP Internal Medicine; Visit Provider Internal Medicine
DX: R07.89 Other chest pain (principal); E11.65 Type 2 diabetes mellitus with hyperglycemia; E78.5 Hyperlipidemia, unspecified; I10 Essential (primary) hypertension; N40.0 Benign prostatic hyperplasia without lower urinary tract symptoms; Z79.4 Long term (current) use of insulin; Z79.899 Other long term (current) drug therapy; H40.9 Unspecified glaucoma
CPT/HCPCS: 36415; 71045; 78452; 80048; 80053; 80061; 82962; 83735; 84484; 85025; 85379; 93005; 93017; 96372; 99218; 99251; 99285; A9500; A4216; G0378; G0463; J2785

== ENCOUNTER 2022-11-11 08:48 | Emergency (ER) | payer MEDICARE, OTHER, SELFPAY ==
[2022-11-11 08:49] VITALS: BP 122/85; PULSE 75; RESP 14; TEMP 36.6; O2SAT 98; BMI 24.4
--- NOTE | 2022-11-11 09:18 | EX.ED.GENINJ ---
HPI History of Present Illness Chief Complaint: Laceration Informant: patient Onset/Context/Timing Onset: Today Mechanism/Context: Blunt Injury Quality of Pain: Dull Location: Occipital scalp Worsened by: Nothing Relieved by: Nothing Associated Symptoms Associated Symptoms: Negative for Parasthesias, Weakness, Loss of function, Inability to ambulate, Loss of consciousness or Amnesia Narrative Narrative: Patient presents with scalp laceration that occurred today. Patient states his dog ran out while the garage door was going up. Patient states that he went to lorrie his dog and hit his head on the garage door. Patient denies any loss of consciousness. Patient denies any paresthesias or weakness. Patient noted bleeding right away. Patient is unsure of his last tetanus. Patient denies any paresthesias or weakness. Patient denies any nausea or vomiting. Tetanus Immunization: Unknown PFSH PFS Medical History Benign hypertension BPH (benign prostatic hyperplasia) Chest pain Diabetes Diabetes mellitus type 2, uncontrolled, without complications GI bleed Glaucoma HLD (hyperlipidemia) Hypertension Non-smoker Home Medications Atorvastatin Calcium 80 mg PO DAILY cholesterol 06/12/13 [History Last Taken 10/06/20 09:00] cholecalciferol (vitamin D3) 25 mcg (1,000 unit) capsule (Vitamin D3) 1,000 unit PO DAILY supplement 06/12/13 [History Last Taken 10/06/20 09:00] latanoprost 0.005 % eye drops 1 drp QHS glaucoma 06/12/13 [History Last Taken 10/05/20] metformin 1,000 mg tablet 500 mg PO BIDCM diabetes 06/12/13 [History Last Taken Unknown] multivitamin with folic acid 400 mcg tablet (Thera) 1 tab PO DAILY supplement 06/12/13 [History Last Taken 10/05/20] benazepril 10 mg tablet 10 mg PO QHS bp 10/06/20 [History Last Taken 10/05/20 00:00] finasteride 5 mg tablet 5 mg PO DAILY prostate 10/06/20 [History Last Taken 10/06/20 09:00] Allergy/AdvReac Type Severity Reaction Status Date / Time Horse/Equine Containing Allergy Other Verified 11/11/22 08:51 Products iodine Allergy Rash Verified 11/11/22 08:51 pneumococcal vaccine Allergy Rash Verified 11/11/22 08:51 [Pneumococcal Vaccine] shellfish derived Allergy Rash Verified 11/11/22 08:51 esomeprazole magnesium AdvReac Pain in Verified 11/11/22 08:51 [From Nexium] joints fexofenadine HCl AdvReac Pain in Verified 11/11/22 08:51 [From Karen] joints glipizide AdvReac Pain in Verified 11/11/22 08:51 joints gluten AdvReac Nausea/Vom/ Verified 11/11/22 08:51 Diarrhea lansoprazole [From Prevacid] AdvReac Pain in Verified 11/11/22 08:51 joints pollen extracts [pollens] AdvReac Other Verified 11/11/22 08:51 simvastatin [From Zocor] AdvReac Pain in Verified 11/11/22 08:51 joints Surgical History History of appendectomy Social History Smoking Status: Never smoker alcohol intake: current alcohol intake frequency: holidays/special occasions only substance use type: does not use do you feel safe at home: Yes ROS ROS ED Constitutional Constitutional ED: Denies chills or fever(s) Eyes Eyes: Denies blurry vision or change in vision ENT ENT ED: Denies rhinorrhea or sore throat Cardiovascular Cardiovascular: Denies chest pain or palpitations Respiratory/Chest Respiratory/Chest: Denies cough or dyspnea Gastrointestinal Gastrointestinal: Denies nausea or vomiting Genitourinary Genitourinary ED: Denies dysuria or hematuria Musculoskeletal Musculoskeletal: Denies back pain or neck pain Integumentary Denies abscess or rash Neurologic Neurologic: Reports headache(s); Denies weakness Allergic/Immunologic Allergic/Immunologic ED: Denies mouth swelling or urticaria EXAM Physical Exam Const Vital Signs: 11/11/22 08:49 Temperature 97.8 F Temperature Source Temporal Pulse Rate 75 Respiratory Rate 14 Blood Pressure 122/85 H Blood Pressure Mean 97 Pulse Ox 98 Oxygen Delivery Method Room Air Positive well nourished and well developed General Appearance ED: well developed and NAD HEENT HEENT Narrative: There is a 5.5 cm superficial laceration over the occipital scalp. There is minimal gapping of the wound margins. There is no active bleeding noted. There is no bony crepitance or step-off. There is no foreign body noted. Neck full ROM Neuro oriented x3, CN's II-XII intact bilaterally, moves all extremities, no focal motor deficits and no sensory deficits noted [place] Coma Scale: document GCS findings Spontaneous Obeys Commands Oriented 15 Sensorium / Orientation: alert Motor Exam: strength 5/5 throughout Psych mental status grossly normal and thought process normal PROC Procedures Lacerations Occipital scalp: Length: 5.5 cm Depth: Skin Shape: Linear Prep: Sterile Conditions and Chlorhexadine Laceration repair: Dermabond, Irrigated and Wound explored MDM MDM MDM Narrative Medical decision making narrative: The wound was cleaned and irrigated with copious amounts of normal saline. The wound was closed with Dermabond skin adhesive. Patient tolerated procedure well. Patient was instructed to avoid bacitracin, Neosporin, or other Vaseline-based ointments. Patient was instructed to follow-up with his primary care physician in 5 to 7 days. Patient was given tetanus booster. Patient was instructed return if worse in any way. Patient understood and was agreeable with the plan. All questions were answered. Discharge Plan Triage Chief Complaint: Laceration ED Provider: Farhat Snow Dx/Rx/DC Orders Clinical Impression: Laceration of occipital scalp Instructions: ED Head Injury (Adult), ED Laceration: Skin Adhesive Prescriptions: No Action Atorvastatin Calcium 80 mg PO DAILY latanoprost 1 DROP bottle 1 drp Each Eye QHS metformin 1,000 MG tablet 500 mg PO BIDCM Patient Comments: PT TAKES 1OOO MG IN AM AND 500 MG IN PM cholecalciferol (vitamin D3) [Vitamin D3] 1,000 UNIT capsule 1,000 unit PO DAILY multivitamin with folic acid [Thera] 1 TABLET tablet 1 tab PO DAILY finasteride 5 mg tablet 5 mg PO DAILY Patient Comments: TAKE 1 TABLET BY MOUTH ONCE DAILY benazepril 10 mg tablet 10 mg PO QHS Patient Comments: TAKE 1 TABLET BY MOUTH ONCE DAILY Primary Care Provider: Arline Mckeon Referrals: Arline Mckeon MD [Primary Care Provider] - 5-7 Days Disposition Disposition: Home, Self Care
[2022-11-11] MEDS: Diphth,Pertuss(Acell),Tet Vac 0.5 ML Vial IM (09:50)
[2022-11-11 09:58] VITALS: RESP 16
== END 2022-11-11 09:59 | disposition home or self-care (01) ==
LOC: ED 09:49
PROVIDERS: Emergency Provider Emergency Medicine; PCP Internal Medicine; Visit Provider Emergency Medicine
DX: S01.01XA Laceration without foreign body of scalp, initial encounter (principal); E11.9 Type 2 diabetes mellitus without complications; E78.5 Hyperlipidemia, unspecified; I10 Essential (primary) hypertension; H40.9 Unspecified glaucoma; N40.0 Benign prostatic hyperplasia without lower urinary tract symptoms; Z79.899 Other long term (current) drug therapy; Z79.84 Long term (current) use of oral hypoglycemic drugs; Z90.49 Acquired absence of other specified parts of digestive tract; Z23 Encounter for immunization; W22.09XA Striking against other stationary object, initial encounter; Y92.59 Other trade areas as the place of occurrence of the external cause
CPT/HCPCS: 12002; 90471; 90715; 99282

== ENCOUNTER 2023-03-15 22:26 | Emergency (ER) | payer MEDICARE, OTHER, SELFPAY ==
[2023-03-15 22:26] VITALS: BP 160/101; PULSE 68; RESP 18; TEMP 35.8; O2SAT 99; BMI 25.9
--- NOTE | 2023-03-15 22:55 | EX.ED.VIS.EY ---
HPI History of Present Illness Chief Complaint: Eye Problem Informant: patient Narrative Narrative: Sudden sharp pain right outer lower lid 1 to 2 hours prior to arrival. Was using heating pack that is improving. No visual changes. Last eye exam in January by Dr. Cortes. History of glaucoma and dry eyes. He uses moisturizing drops intermittently since he was last seen. He is on glaucoma eyedrops. Denies headache. Denies any injuries. Prior similar symptoms: No PFSH PFSH Medical History Benign hypertension BPH (benign prostatic hyperplasia) Chest pain Diabetes Diabetes mellitus type 2, uncontrolled, without complications GI bleed Glaucoma HLD (hyperlipidemia) Hypertension Non-smoker Home Medications Atorvastatin Calcium 80 mg PO DAILY cholesterol 06/12/13 [History Last Taken 10/06/20 09:00] cholecalciferol (vitamin D3) 25 mcg (1,000 unit) capsule (Vitamin D3) 1,000 unit PO DAILY supplement 06/12/13 [History Last Taken 10/06/20 09:00] latanoprost 0.005 % eye drops 1 drp QHS glaucoma 06/12/13 [History Last Taken 10/05/20] metformin 1,000 mg tablet 500 mg PO BIDCM diabetes 06/12/13 [History Last Taken Unknown] multivitamin with folic acid 400 mcg tablet (Thera) 1 tab PO DAILY supplement 06/12/13 [History Last Taken 10/05/20] benazepril 10 mg tablet 10 mg PO QHS bp 10/06/20 [History Last Taken 10/05/20 00:00] finasteride 5 mg tablet 5 mg PO DAILY prostate 10/06/20 [History Last Taken 10/06/20 09:00] Allergy/AdvReac Type Severity Reaction Status Date / Time Horse/Equine Containing Allergy Other Verified 11/11/22 08:51 Products iodine Allergy Rash Verified 11/11/22 08:51 pneumococcal vaccine Allergy Rash Verified 11/11/22 08:51 [Pneumococcal Vaccine] shellfish derived Allergy Rash Verified 11/11/22 08:51 esomeprazole magnesium AdvReac Pain in Verified 11/11/22 08:51 [From Nexium] joints fexofenadine HCl AdvReac Pain in Verified 11/11/22 08:51 [From Karen] joints glipizide AdvReac Pain in Verified 11/11/22 08:51 joints gluten AdvReac Nausea/Vom/ Verified 11/11/22 08:51 Diarrhea lansoprazole [From Prevacid] AdvReac Pain in Verified 11/11/22 08:51 joints pollen extracts [pollens] AdvReac Other Verified 11/11/22 08:51 simvastatin [From Zocor] AdvReac Pain in Verified 11/11/22 08:51 joints Surgical History History of appendectomy Social History Smoking Status: Never smoker alcohol intake: current alcohol intake frequency: holidays/special occasions only substance use type: does not use do you feel safe at home: Yes ROS ROS ED Constitutional Constitutional ED: Denies chills, fever(s) or sweats Eyes Eyes: Reports other Details: Right eyelid pain, chronic burning due to dry eyes bilaterally ; Denies change in vision ENT ENT ED: Denies dysphagia or sore throat Cardiovascular Cardiovascular: Denies chest pain, leg edema, palpitations or racing heartbeat Respiratory/Chest Respiratory/Chest: Denies cough, dyspnea or dyspnea on exertion Gastrointestinal Gastrointestinal: Denies abdominal pain, diarrhea, nausea or vomiting Genitourinary Genitourinary ED: Denies dysuria, hematuria or urinary frequency Musculoskeletal Musculoskeletal: Denies back pain, extremity pain or neck pain Integumentary Denies rash or wounds Neurologic Neurologic: Denies headache(s), paresthesias or weakness EXAM Physical Exam Const Vital Signs: 03/15/23 22:26 Temperature 96.5 F L Temperature Source Temporal Pulse Rate 68 Respiratory Rate 18 Blood Pressure 160/101 H Blood Pressure Mean 120 Pulse Ox 99 Oxygen Delivery Method Room Air Positive well nourished and well developed General Appearance ED: well developed and NAD HEENT Reports moist mucous membranes normocephalic and atraumatic Eyes PERRL, EOMs intact bilaterally and conjunctivae normal Eyes Narrative: Slit-lamp examination right eye there is dryness on the outer aspect of the cornea. No ulcers. Lower eyelid evaluation noted a small bump with erythema tender to palpation with moist Q-tip reproducible. No drainage. No gross foreign body noted. General Eye ED: Yes normal appearance of both eyes Neck no lymphadenopathy and supple General: Negative for tenderness Chest Wall Chest: Negative for tenderness Resp normal respiratory effort and normal air movement Effort and Inspection: symmetric chest movement; Negative for respiratory distress Cardio regular rate, regular rhythm and no murmurs Peripheral Pulses: pulses 2+ throughout GI normal to inspection, nondistended, normoactive bowel sounds and non-tender Palpation: Negative for guarding or rebound tenderness present Back/Spine no CVA tenderness and no thoracic nor lumbar tenderness Extremity normal to inspection General Extremety ED: Negative for edema or tenderness General Extremity: Negative for edema Neuro oriented x3 and no sensory deficits noted Sensorium / Orientation: awake and alert Skin no rashes or lesions noted and no wounds MDM MDM MDM Narrative Medical decision making narrative: Interventions / MDM: Differential diagnosis: Stye, keratitis Diagnosis considered but do not suspect: No clinical active glaucoma My EKG interpretation: N/A Imaging independently reviewed and interpreted by myself: N/A External documents reviewed: N/A Test considered but not ordered:N/A ED course: Slit-lamp examination and exam concerns for stye in the lower lid. Chronic dry eyes and has moisturizing drops at home. Provided antibiotic ointment to use twice a day. He will follow-up with his director of enrollment outpatient for reevaluation further treatment as needed. All questions were answered. Re-evaluation: stable Disposition discussed with patient/family/significant other: Patient Case discussed with consulting clinician: N/A This note was generated with [facility] dictation software. It may contain incorrect words, spelling, and punctuation that were not noted in checking the note before signing. Discharge Plan Triage Chief Complaint: Eye Problem ED Provider: Marlon Kan Dx/Rx/DC Orders Clinical Impression: Hordeolum externum of left lower eyelid Instructions: ED Sty Prescriptions: No Action Atorvastatin Calcium 80 mg PO DAILY latanoprost 1 DROP bottle 1 drp Each Eye QHS metformin 1,000 MG tablet 500 mg PO BIDCM Patient Comments: PT TAKES 1OOO MG IN AM AND 500 MG IN PM cholecalciferol (vitamin D3) [Vitamin D3] 1,000 UNIT capsule 1,000 unit PO DAILY multivitamin with folic acid [Thera] 1 TABLET tablet 1 tab PO DAILY finasteride 5 mg tablet 5 mg PO DAILY Patient Comments: TAKE 1 TABLET BY MOUTH ONCE DAILY benazepril 10 mg tablet 10 mg PO QHS Patient Comments: TAKE 1 TABLET BY MOUTH ONCE DAILY Primary Care Provider: Arline Mckeon Referrals: Arline Mckeon MD [Primary Care Provider] - Jose Antonio Cortes MD [Med Staff - Active Staff] - 1 Day Activity Restrictions/Additional Instructions: Internal stye right lower lid outer aspect. Use ointment twice a day. Call office Dr. Cortes tomorrow for outpatient evaluation. Disposition Disposition: Home, Self Care
[2023-03-16] MEDS: Erythromycin Ophthalmic (NSY) 1 GM OPTH.TUBE 1 APPLIC RIGHT EYE (00:01)
== END 2023-03-16 00:02 | disposition home or self-care (01) ==
PROVIDERS: Emergency Provider Emergency Medicine; PCP Internal Medicine; Visit Provider Emergency Medicine
DX: H00.015 Hordeolum externum left lower eyelid (principal); E11.9 Type 2 diabetes mellitus without complications; I10 Essential (primary) hypertension; E78.5 Hyperlipidemia, unspecified; Z79.84 Long term (current) use of oral hypoglycemic drugs; Z79.899 Other long term (current) drug therapy; N40.0 Benign prostatic hyperplasia without lower urinary tract symptoms
CPT/HCPCS: 92285; 99282